=== PATIENT | female | born 1965 | race Caucasian/White ===

== ENCOUNTER 2017-12-09 03:59 | Outpatient (CLI) | payer MEDICARE, MEDICAID ==
[~2017-12-09 03:59] MED LIST: PHEN-873 PO
== END 2017-12-09 23:59 | disposition home or self-care (01) ==
LOC: DIABETIC 03:59
PROVIDERS: ATTEND Nurse Practitioner Family
DX: E11.65 Type 2 diabetes mellitus with hyperglycemia (principal)
CPT/HCPCS: G0108

== ENCOUNTER → 2022-07-25 | Emergency (ER) | payer MEDICARE, MEDICAID ==
[~2022-07-25] VITALS: Ht 157.5 cm; Wt 109.0 kg
[~2022-07-25] MED LIST changes: +PHEN-786 PO; -PHEN-873 PO
[2022-07-25 16:46] VITALS: BP 182/94
[2022-07-25 17:32] LABS: CLARITY,URINE CLEAR (Clear); COLOR,URINE YELLOW (Yellow); GLUCOSE, URINE >=1000 mg/dl (Neg); KETONES,URINE >=80 mg/dl (Neg); LEUKOCYTE ESTERASE ,URINE NEGATIVE (Neg); NITRITES, URINE NEGATIVE (Neg); OCCULT BLOOD,URINE NEGATIVE (Neg); PROTEIN,URINE TRACE mg/dl (Neg)
[2022-07-25 17:35] LABS: URINE HCG NEGATIVE (NEG)
[2022-07-25 17:38] LABS: UA COLLECTION TYPE CLN CATCH MIDSTREAM
[2022-07-25 17:39] LABS: BACTERIA,URINE FEW /HPF (Neg); MUCUS STRANDS FEW /LPF (Neg); RBC,URINE 0-2 /HPF (0-2); SQUAMOUS EPITHELIAL CELL,UR FEW /LPF (FEW); WBC,URINE NONE SEEN /HPF (0-4)
== END | disposition left against medical advice (07) ==
LOC: ER 15:47
DX: R11.10 Vomiting, unspecified (principal); K59.00 Constipation, unspecified; Z53.21 Procedure and treatment not carried out due to patient leaving prior to being seen by health care provider
CPT/HCPCS: 81001; 81025; 82948